=== PATIENT | male | born 2000 | race Hispanic/Latino ===

== ENCOUNTER 2023-06-03 16:57 | Emergency (ER) | payer OTHER ==
[~2023-06-03] VITALS: Ht 165.1 cm; Wt 85.3 kg
[~2023-06-03 16:57] MED LIST: IBUP-2077 PO
[2023-06-03] MEDS ORDERED: CEPHALEXIN 500 MG CAPSULE PO ONE (19:00)
[2023-06-03] MEDS ORDERED: TETANUS/DIPHTHERIA TOXOID [ADULT] 0.5 ML VIAL IM ONE (19:00)
[2023-06-03] MEDS ORDERED: CEPH500B PO (19:02)
[2023-06-03] MEDS ORDERED: IBUP-2070 PO (19:02)
[2023-06-03 19:08] VITALS: BP 126/70; PULSE 71; RESP 17; O2SAT 98
== END 2023-06-03 19:12 | disposition home or self-care (01) ==
LOC: EDH 16:57
DX: S60.451A Superficial foreign body of left index finger, initial encounter (principal); X58.XXXA Exposure to other specified factors, initial encounter; Y93.89 Activity, other specified; Y92.89 Other specified places as the place of occurrence of the external cause; Y99.8 Other external cause status
CPT/HCPCS: 10120; 73130; 90471; 90714